=== PATIENT | male | born 1935 | race Caucasian/White ===

== ENCOUNTER 2024-07-29 14:00 | Outpatient (RCR) | payer MEDICARE, MEDICAID, SELFPAY | END 2024-08-01 23:59 | disposition home or self-care (01) | LOC: SCTC 14:00 | PROVIDERS: PCP Hospitalist; Referring Provider Hospitalist; Visit Provider Internal Medicine Hematology & Oncology | DX: Z51.11 Encounter for antineoplastic chemotherapy (principal); C61 Malignant neoplasm of prostate; Z79.818 Long term (current) use of other agents affecting estrogen receptors and estrogen levels | CPT/HCPCS: 96402; 99212; J9217; G0463 ==

== ENCOUNTER 2024-12-01 14:20 | Outpatient (RCR) | payer MEDICARE, MEDICAID, SELFPAY ==
--- NOTE | 2024-12-02 06:24 | CTCFLWUP_ITS ---
Patient: GREG DORSEY : 1935 Page 7 of 7 FOLLOW UP NOTE DATE OF SERVICE: 12/01/2024 NAME: GREG DORSEY ACCOUNT: [id number] : 1935 AGE: 89 INTERVAL HISTORY: Subjective: Chief Complaint New mole-like growth on skin for about a month, follow-up for prostate cancer History of Present Illness Greg Salas, an 89-year-old male with a history of prostate cancer, presents for follow-up. The patient has developed a new skin lesion that started about a month ago, which can hurt and bleed if scraped. The patient's prostate cancer was diagnosed in 2020, with a negative bone scan at that time. He is currently being treated with Lupron (leuprolide) depot injections, which he receives every 6 months instead of every 3 months due to a higher dose. The patient reports feeling more tired since starting Lupron. He declines additional medications for prostate cancer treatment, including the suggested Casodex, stating he is against all of it other than the shots. Regarding mobility, the patient's ability to walk has declined. While he could previously walk independently, he now uses a wheelchair following a fall. At home, he can walk to the bathroom and back but gets worn out quickly. The patient's caregiver notes that some days are weaker than others. The patient is currently residing at [facility] [address], where he has been for almost 5 years. His caregiver, who accompanies him to appointments, manages his care. Medications and Supplements - Lupron (leuprolide for depot) injection - Higher dose given for 6-month duration instead of 3 months - Makes patient tired - Vitamin D - Taken daily - Xtandi - Discontinued Review of Systems General: Positive for fatigue. Musculoskeletal: Positive for weakness, difficulty walking. Objective: Physical Examination Skin: Mole-like lesion observed, described as not appearing cancerous. Lesion noted to have potential for bleeding if scraped. 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 Currently on Lupron Patient considers himself transgender. 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 Ramirez score 7 TREATMENT HISTORY: Care?Plan Start?Date Cycle Day Intent Lupron?22.5?mg?q?3?mon 09/15/2021 1 90 Palliative HISTORY OF PRESENT ILLNESS: This is an office follow-up visit. Mr. Dorsey is here at [facility]. He is accompanied by his farmworker dairy, Mahogany. Patient is a resident of [facility]. Patient has declined to restart Xtandi multiple times. According to Mahogany, patient's health care team at his shelter aware of patient?s desire to not take Xtandi, he is agreeable with continuing Lupron. He is clinically doing well. Denies any complaints today. Denies any difficulty urinating. Denies any cough, chest pain, abdominal pain or leg cramps. Patient and patient's farmworker dairy report good appetite and energy levels. Patient is currently on Lupron 22.5 mg every 3 months. HISTORY: Greg Dorsey is a 89-year-old ENG speaking male (transgender) has the following oncology history. May 2001: Patient had prostate biopsy which revealed Ramirez score 7 prostatic adenocarcinoma. 2001: Patient was treated with brachytherapy radiation. His PSA has decreased from 9.9 to undetectable level. 2004: PSA was noted to be rising to 8.4. Patient was started on intermittent Lupron therapy at [facility]. 08/11/2020: PSA 5.6. 09/24/2020: Bone scan? 03/09/2021: PSA 8.0 06/10/2021: PSA 11.1. 06/17/2021: Patient received Lupron 22.5 mg. 08/02/2021: Bone scan: Negative for metastatic disease 08/31/2021: Xtandi 160 mg p.o. daily added to Lupron. 09/01/2021: PSA 13.7. 09/09/2021: PSA 14.9. 11/30/2021: PSA 4.7. 03/03/2022: PSA 2.20. July 2022: Ms. Dorsey stopped taking Xtandi. 08/09/2022: PSA 1.38. 03/16/2023: PSA 13.06. 04/13/2023: Bone scan done 05/07/2023: PSA 16.61 07/04/2023: PSA 27.63. 08/07/2023: MRI of the thoracic spine with IV contrast was done to evaluate the abnormality seen on the bone scan. 10/02/2023: PSA 40.68. 10/18/2023: PET/CT scan? 10/31/2023: Xtandi 160 mg p.o. 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 However patient decided not to take Xtandi. 12/24/2023: PSA 46.90. 03/30/2024: PSA 101.05 OTHER MEDICAL HISTORY/CONDITIONS: FAMILY HISTORY: SOCIAL HISTORY: MEDICATIONS: 1. albuterol sulfate - 2.5 mg /3 mL (0.083 %) As directed 2. amlodipine - 10 mg 1 tab Daily 3. atorvastatin - 20 mg 1 tab Daily 4. Casodex - 50 mg 1 tab Daily 5. clopidogrel - 75 mg tab 6. donepezil - 5 mg Daily 7. Dulcolax (bisacodyl) - 10 mg 1 Suppository As directed 8. escitalopram oxalate - 5 mg 1 tab Daily 9. hydrALAZINE - 10 mg 1 tab Daily 10. memantine - 5 mg 1 tab Twice a Day 11. metoprolol tartrate - 37.5 mg 1 tab Twice a Day 12. metoprolol tartrate - 25 mg 1 tab Twice a Day 13. multivitamin - 1 Capsule Daily 14. Tylenol - 325 mg 2 tab Three times a day Medications Last Reconciled by Mitra Castle MA on 12/01/2024 ALLERGIES: No Known Drug Allergies REVIEW OF SYSTEMS: A complete 14-point review of systems was performed and is negative except as noted in interval history. PHYSICAL EXAMINATION: VITAL SIGNS: Temperature?98.8, B/P?143/93, Oxygen?Saturation?94% PAIN: 0 - No pain ECOG Performance Status: 2 - Symptomatic; ambulatory; capable of self-care; >50% of waking hrs. not in bed GENERAL APPEARANCE: Appears well, in no apparent distress, appropriately interactive. HEENT: Normocephalic, no temporal wasting, normal conjunctiva, no scleral icterus, normal hearing, lips without lesions, neck normal range of motion. CARDIOVASCULAR: Normal heart sounds PULMONARY: Normal respiratory effort, no respiratory distress or use of accessory muscles, speaking in full sentences, no tachypnea. EXTREMITIES: No cyanosis. SKIN: Normal skin appearance. NEUROLOGIC: Alert and oriented x4. PSHYCHIATRIC: Appropriate affect, mood normal, behavior normal, intact thought and speech. LABORATORY DATA: I have personally reviewed and interpreted each of the patient?s relevant lab tests, abnormal findings are below: Date 03/03/22 11/20/22 ??WHITE?BLOOD?COUNT?(Thou/mm3) 4.1 4.0 ??RED?BLOOD?COUNT?(Miln/mm3) 5.11 4.54 ??HEMOGLOBIN?(gm/dl) 14.3 12.6 ??HEMATOCRIT?(%) 42.3 37.7 ??PLATELET?COUNT?(Thou/mm3) 354 263 ??NEUTROPHILS?%,?AUTO?(%) 51 56 ??LYMPH?%,?AUTO?(%) 40 34 ??NEUTROPHILS,?AUTO?(Thou/mm3) 2.1 2.2 ??GLUCOSE,RANDOM?(mg/dL) 104 121?H ??BLOOD?UREA?NITROGEN?(mg/dL) 23 20 ??CREATININE?(mg/dL) 0.90 1.00 ??SODIUM?(mmol/L) 142 141 ??POTASSIUM?(mmol/L) 4.5 4.4 ??CHLORIDE?(mmol/L) 107 108?H ??CrCl?(CandG)?(ml/min) 49.59 43.32 ??AST/SGOT?(Unit/L) 21 22 ??ALT/SGPT?(Unit/L) 9?L 14 ??ALKALINE?PHOSPHATASE?(Unit/L) 91 74 ??BILIRUBIN,?TOTAL?(mg/dL) 0.8 0.3 ??PROTEIN?TOTAL?(gm/dl) 7.7 7.5 ??ALBUMIN,?SERUM?(gm/dl) 4.4 4.1 ??GLOBULIN?(gm/dl) 3.3 3.4 ??ALBUMIN/GLOBULIN?RATIO 1.3 1.2 ??CALCIUM,?SERUM?(mg/dL) 9.6 9.1 ??CALCIUM?SERUM?(CORRECTED)?(mg/dL) 9.6 9.1 ASSESSMENT/PLAN: 1. 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 [place] score 7, (05/2001) Previously patient was on Lupron 22.5 mg every 3 months. Scheduled for Lupron 45 mg every 6 months tomorrow, 05/29/2025. In view of the increasing PSA as well as hypermetabolic lesions in the mediastinum without any bone hypermetabolic lesions, (PET/CT, 10/18/2023) patient was prescribed Xtandi in addition to Lupron. However, patient decided not to take Xtandi. He was not able to give any reason as to why he decided not to take Xtandi. According to Mahogany, patient's care provider, shelter is aware of patient's wishes to not take Xtandi. Greg Salas, 89-year-old male with history of prostate cancer, presenting with a new skin lesion and elevated PSA. Prostate Cancer Assessment: Patient diagnosed with prostate cancer in 2020. Currently on Lupron (leuprolide depot) injections. PSA has significantly increased from 178 to 259, indicating potential disease progression. Bone scan was negative in the past. Patient previously tried Xtandi but is currently only on Lupron. Patient expresses reluctance to add additional medications. Plan: - Continue Lupron (leuprolide depot) injections every 6 months - Recommended starting Casodex (bicalutamide) for additional hormone blockade due to rising PSA - Patient accepted this recommendation after being informed it is a light medication, for harmone blamandoade - Monitor PSA levels - Follow up to reassess treatment plan and disease progression New Skin Lesion Assessment: Patient presents with a new skin lesion that started about a month ago. Upon examination, it appears to be a benign mole rather than a malignant lesion. However, it can potentially cause discomfort if scraped. Plan: - Refer to dermatology for evaluation and potential removal - Informed patient that removal procedure would involve local anesthesia, excision, and suturing Vitamin D Deficiency Assessment: Patient's vitamin D status is unclear, but supplementation is recommended, especially considering the patient's age and limited mobility. Plan: - Start daily vitamin D supplementation Decreased Mobility Assessment: Patient reports decreased mobility and endurance. He can walk to the bathroom independently but gets fatigued quickly. Patient uses a wheelchair for most activities following a fall, though he was previously using a walker. Fatigue may be partially attributed to Lupron therapy. Plan: - Continue current mobility aids as needed - Monitor for changes in mobility status ORDERS: Order # Description RETURN TO CLINIC: BILLING AND COMPLIANCE: I reviewed external records from providers outside my specialty as summarized above. I spent a total of 50 minutes on this patient?s care on the day of their visit excluding time spent related to any billed procedures. This time includes time spent with the patient as well as time spent documenting in the medical record, reviewing patients records and tests, obtaining history, placing orders, communicating with other healthcare professionals, counseling the patient, family or caregiver, and/or care coordination for the diagnoses above. Electronically Signed by: {Object.Sanct_ID*PnP.NameFL@M}, {Object.Sanct_ID*PnP.Suffix@U} D: {Object.Sanct_Date} T: {Object.Sanct_Time} CC: Nelson?Prema?, Nathaniel?Grace? PCP: Mónica Gao Referring: Mónica Gao This document was completed utilizing speech recognition software. Grammatical errors, random word insertions, pronoun errors, and incomplete sentences are an occasional consequence of this system due to software limitations, ambient noise, and hardware issues. Any formal questions or concerns about the content, text or information contained within the body of this dictation should be directly addressed to the provider for clarification.
== END 2024-12-29 23:59 | disposition home or self-care (01) ==
LOC: SCTC 14:20
PROVIDERS: PCP Hospitalist; Referring Provider Hospitalist; Visit Provider Internal Medicine Hematology & Oncology
DX: C61 Malignant neoplasm of prostate (principal); L98.8 Other specified disorders of the skin and subcutaneous tissue; Z19.2 Hormone resistant malignancy status; Z79.818 Long term (current) use of other agents affecting estrogen receptors and estrogen levels; E55.9 Vitamin D deficiency, unspecified; Z74.09 Other reduced mobility; R53.83 Other fatigue
CPT/HCPCS: 99212; G0463